=== PATIENT | male | born 1950 | race Caucasian/White ===

== ENCOUNTER 2022-06-16 13:28 | Emergency (ER) | payer OTHER ==
[2022-06-16 13:58] LABS: HEMOGLOBIN 15.3 gm/dl (14.0-17.5); RED BLOOD COUNT 5.48 M/UL (4.20-5.50); WHITE BLOOD COUNT 15.4 K/UL (4.5-11.0)
[2022-06-16] MEDS ORDERED: CEFDINIR300 MG PO (14:54)
[2022-06-16] MEDS ORDERED: OMNICEF 300 MG300 MG PO (18:25)
== END 2022-06-16 20:10 | disposition home or self-care (01) ==
LOC: ER1 13:28
PROVIDERS: Student in an Organized Health Care Education/Training Program
DX: J18.9 Pneumonia, unspecified organism (principal); E11.9 Type 2 diabetes mellitus without complications; I10 Essential (primary) hypertension; Z20.822 Contact with and (suspected) exposure to COVID-19
CPT/HCPCS: 0240U; 71045; 80048; 80053; 82550; 82553; 83605; 84484; 85025; 87040; 93005; 96374; 99285; J0696

== ENCOUNTER 2022-06-20 09:56 | Inpatient (IN) | payer OTHER ==
[~2022-06-20] VITALS: Ht 175.3 cm; Wt 87.1 kg
[~2022-06-20 09:56] MED LIST: CEFDINIR300 MG PO; OMNICEF 300 MG300 MG PO
[2022-06-20 11:00] LABS: RED BLOOD COUNT 5.15 M/UL (4.20-5.50); WHITE BLOOD COUNT 15.4 K/UL (4.5-11.0)
[2022-06-20] MEDS ORDERED: FAMOTIDINE20 MG PO (14:53)
[2022-06-20] MEDS ORDERED: PROVENTIL HFA6.7 GM INH (14:54)
[2022-06-20] MEDS ORDERED: BENAZEPRIL-HCT1 EAC1 PO (14:55)
[2022-06-20] MEDS ORDERED: JANUVIA100 MG PO (14:55)
[2022-06-20] MEDS ORDERED: GLIMEPIRIDE4 MG PO (14:56)
[2022-06-20] MEDS ORDERED: METFORMIN HCL1000 MG PO (14:57)
[2022-06-21 06:24] LABS: RED BLOOD COUNT 4.79 M/UL (4.20-5.50); WHITE BLOOD COUNT 12.8 K/UL (4.5-11.0)
[2022-06-21 14:51] LABS: BODY FLUID SOURCE PLEURAL; MONONUCLEAR CELLS 93 (75-100); RBC (AUTOMATED) 700 (0-100000); WBC (AUTOMATED) 2114 (0-500)
[2022-06-21 14:52] LABS: POLYMORPHONUCLEAR % 7 (0-25)
--- NOTE | 2022-06-21 15:07 | NUR ---
1250 - DR. ARANGO IN TO PERFORM THORACENTESIS ON PATIENT. PROCEDURE WAS PERFORMED AND TOLERATED WELL BY THE PATIENT. APPROXIMATELY 650mls REMOVED FROM PATIENTS RIGHT LUNG. 3 SMALL VIALS AND 1 SPECIMEN CUP CONTAINING A SAMPLE OF THE FLUID REMOVED WAS SENT TO LAB PER PROVIDER ORDERS. PATIENT VITALS WNL. NO ACUTE DISTRESS NOTED. WILL CONTINUE TO MONITOR.
[2022-06-21 15:19] LABS: LDH, BODY FLUID 85 U/L; TOTAL PROTEIN, BODY FLUID 3.8 gm/dL
[2022-06-21 15:20] LABS: AMYLASE, BODY FLUID 17 U/L
[2022-06-22 05:25] LABS: RED BLOOD COUNT 5.03 M/UL (4.20-5.50); WHITE BLOOD COUNT 14.6 K/UL (4.5-11.0)
[2022-06-23 07:47] LABS: RED BLOOD COUNT 4.8 M/UL (4.20-5.50); WHITE BLOOD COUNT 12.1 K/UL (4.5-11.0)
[2022-06-23 12:36] LABS: BUN/CREATININE RATIO 18 (0-10)
[2022-06-23 16:12] LABS: ORGANISM ID Not indicated. (.); SPECIMEN SOURCE Urine (.); STREPTOCOCCUS PNEUMONIAE AG Negative (Negative)
[2022-06-24 04:48] LABS: BUN/CREATININE RATIO 16 (0-10)
[2022-06-24 09:33] LABS: RED BLOOD COUNT 4.83 M/UL (4.20-5.50); WHITE BLOOD COUNT 13.3 K/UL (4.5-11.0)
[2022-06-24] MEDS ORDERED: LEVOFLOXACIN750 MG PO (16:09)
[2022-06-24] MEDS ORDERED: AMOX TR-K CLV1 EAC4 PO (16:09)
[2022-06-24] MEDS ORDERED: ASPIRIN EC81 MG PO (16:35)
[2022-06-24] MEDS ORDERED: FLONASE 0.05% N16 GM (16:35)
[2022-06-24] MEDS ORDERED: PULMICORT0.5 MG/2 M INH (16:38)
[2022-06-24] MEDS ORDERED: IPRAT-ALBUT 0.5-3 ML INH (16:38)
[2022-06-24] MEDS ORDERED: LOPRESSOR 25 MG25 MG PO (16:46)
[2022-06-24] MEDS ORDERED: LASIX20 MG PO (16:46)
[2022-06-24] MEDS ORDERED: PHENERGAN 25 MG25 M1 PO (17:21)
== END 2022-06-24 17:50 | disposition home or self-care (01) | DRG 193 ==
LOC: ER1 09:56 → CDU 14:18 → MED SURG 4 14:18
PROVIDERS: Internal Medicine; Physician Assistant; ADMIT Internal Medicine
PROC: 0W993ZZ Drainage of Right Pleural Cavity, Percutaneous Approach (ICD-10-PCS; principal; 2022-06-21)
PROC: B24BZZZ Ultrasonography of Heart with Aorta (ICD-10-PCS; 2022-06-22)
DX: J18.9 Pneumonia, unspecified organism (principal); J96.01 Acute respiratory failure with hypoxia; Z20.822 Contact with and (suspected) exposure to COVID-19; C96.9 Malignant neoplasm of lymphoid, hematopoietic and related tissue, unspecified; J90 Pleural effusion, not elsewhere classified; E87.1 Hypo-osmolality and hyponatremia; R59.0 Localized enlarged lymph nodes; K80.20 Calculus of gallbladder without cholecystitis without obstruction; E11.22 Type 2 diabetes mellitus with diabetic chronic kidney disease; E66.9 Obesity, unspecified; I12.9 Hypertensive chronic kidney disease with stage 1 through stage 4 chronic kidney disease, or unspecified chronic kidney disease; N18.30 Chronic kidney disease, stage 3 unspecified; J60 Coalworker's pneumoconiosis; J44.9 Chronic obstructive pulmonary disease, unspecified; K21.9 Gastro-esophageal reflux disease without esophagitis; Z79.01 Long term (current) use of anticoagulants; Z79.82 Long term (current) use of aspirin; Z87.11 Personal history of peptic ulcer disease; Z87.891 Personal history of nicotine dependence; Z88.8 Allergy status to other drugs, medicaments and biological substances; Z82.49 Family history of ischemic heart disease and other diseases of the circulatory system; Z83.3 Family history of diabetes mellitus; Z68.28 Body mass index [BMI] 28.0-28.9, adult
CPT/HCPCS: ECHO; 36415; 36600; 71045; 71046; 71275; 80048; 80053; 80202; 81001; 82150; 82550; 82553; 82803; 82945; 82962; 83605; 83615; 83735; 83986; 84157; 84484; 85025; 85027; 85379; 87040; 87070; 87081; 87205; 87278; 87899; 89051; 93005; 93306; 93970; 94640; 94664; 94760; 96374; 96375; 99285; J0692; J1650; J1940; J2185; J3370; J7070; Q9967; U0002

== ENCOUNTER → 2022-07-05 | Outpatient (CLI) | payer OTHER ==
[~2022-07-05] MED LIST changes: +AMOX TR-K CLV1 EAC3 PO; +AMOX TR-K CLV1 EAC4 PO; +ASPIRIN EC81 MG PO; +BENAZEPRIL-HCT1 EAC1 PO; +FAMOTIDINE20 MG PO; +FLONASE 0.05% N16 GM; +GLIMEPIRIDE4 MG PO; +IPRAT-ALBUT 0.5-3 ML INH; +JANUVIA100 MG PO; +LASIX20 MG PO; +LEVOFLOXACIN750 MG PO; +LOPRESSOR 25 MG25 MG PO; +METFORMIN HCL1000 MG PO; +MYCOSTATIN100000 UTS PO; +PHENERGAN 25 MG25 M1 PO; +PROVENTIL HFA6.7 GM INH; +PULMICORT0.5 MG/2 M INH
== END ==
LOC: EXRD 11:21
DX: J90 Pleural effusion, not elsewhere classified (principal)
CPT/HCPCS: 71046

== ENCOUNTER 2022-07-07 12:05 | Inpatient (IN) | payer OTHER ==
[~2022-07-07] VITALS: Ht 172.7 cm; Wt 78.3 kg
[~2022-07-07 12:05] MED LIST changes: -MYCOSTATIN100000 UTS PO
[2022-07-07 12:52] LABS: HEMOGLOBIN 17.3 gm/dl (14.0-17.5); RED BLOOD COUNT 6.25 M/UL (4.20-5.50); WHITE BLOOD COUNT 29.7 K/UL (4.5-11.0)
[2022-07-07] MEDS ORDERED: MYCOSTATIN100000 UTS PO (14:46)
[2022-07-08 05:20] LABS: WHITE BLOOD COUNT 24.2 K/UL (4.5-11.0)
[2022-07-08 05:22] LABS: HEMOGLOBIN 13.7 gm/dl (14.0-17.5); RED BLOOD COUNT 5.12 M/UL (4.20-5.50)
[2022-07-09 05:09] LABS: BUN/CREATININE RATIO 28 (0-10)
[2022-07-09 05:14] LABS: RED BLOOD COUNT 5.52 M/UL (4.20-5.50); WHITE BLOOD COUNT 22.6 K/UL (4.5-11.0)
[2022-07-09 10:04] LABS: BORDETELLA PARAPERTUSSIS Not Detected (Not Detectd); BORDETELLA PERTUSSIS Not Detected (Not Detectd); CHLAMYDIA PNEUMONIAE Not Detected (Not Detectd); CORONAVIRUS HKU1 Not Detected (Not Detectd); CORONAVIRUS NL63 Not Detected (Not Detectd); CORONAVIRUS OC43 Not Detected (Not Detectd); CORONOAVIRUS 229E Not Detected (Not Detectd); HUMAN METAPNEUMOVIRUS Not Detected (Not Detectd); HUMAN RHINOVIRUS/ENTEROVIRUS Not Detected (Not Detectd); INFLUENZA A Not Detected (Not Detectd); INFLUENZA B Not Detected (Not Detectd); MYCOPLASMA PNEUMONIAE Not Detected (Not Detectd); PARAINFLUENZA VIRUS 1 Not Detected (Not Detectd); PARAINFLUENZA VIRUS 2 Not Detected (Not Detectd); PARAINFLUENZA VIRUS 3 Not Detected (Not Detectd); PARAINFLUENZA VIRUS 4 Not Detected (Not Detectd); RESPIRATORY SYNCYTIAL VIRUS Not Detected (Not Detectd)
[2022-07-09 11:02] LABS: SARS-CoV-2 NOT DETECTED (Not Detectd)
[2022-07-10 04:49] LABS: HEMOGLOBIN 14.7 gm/dl (14.0-17.5); RED BLOOD COUNT 5.41 M/UL (4.20-5.50)
[2022-07-10 04:50] LABS: WHITE BLOOD COUNT 16.6 K/UL (4.5-11.0)
[2022-07-10 06:42] LABS: BUN/CREATININE RATIO 31 (0-10)
[2022-07-10 10:09] LABS: BUN/CREATININE RATIO 30 (0-10)
[2022-07-11 04:37] LABS: HEMOGLOBIN 14.7 gm/dl (14.0-17.5); RED BLOOD COUNT 5.44 M/UL (4.20-5.50)
[2022-07-11 04:44] LABS: WHITE BLOOD COUNT 22.6 K/UL (4.5-11.0)
[2022-07-11 04:58] LABS: BUN/CREATININE RATIO 31 (0-10)
[2022-07-12 05:05] LABS: HEMOGLOBIN 15.8 gm/dl (14.0-17.5); RED BLOOD COUNT 5.82 M/UL (4.20-5.50)
[2022-07-12 05:12] LABS: WHITE BLOOD COUNT 37.3 K/UL (4.5-11.0)
[2022-07-12 05:30] LABS: BUN/CREATININE RATIO 32 (0-10)
[2022-07-13 08:37] LABS: HEMOGLOBIN 14.1 gm/dl (14.0-17.5); RED BLOOD COUNT 5.39 M/UL (4.20-5.50); WHITE BLOOD COUNT 26.2 K/UL (4.5-11.0)
[2022-07-13 09:13] LABS: BUN/CREATININE RATIO 32 (0-10)
[2022-07-13] MEDS ORDERED: ZYVOX600 MG PO (14:32)
[2022-07-13] MEDS ORDERED: MUCOMYST 20% 4 M4 ML INH (14:32)
--- NOTE | 2022-07-13 15:02 | NUR ---
07/13/22 1501 PATIENT O2 SATURATION 87% ON ROOM AIR.
--- NOTE | 2022-07-13 17:31 | NUR ---
07/13/22 0044 REPORT CALLED TO [facility]. SPOKE TO CARLOS A ABOUT WEEKLY PICC LINE DRESSING CHANGE AND PLUERX DRAINAGE QOD
== END 2022-07-13 17:45 | disposition home or self-care (01) | DRG 871 ==
LOC: ER1 12:05 → CDU 13:49 → CCU 13:49
PROVIDERS: Family Medicine; Internal Medicine; Internal Medicine Pulmonary Disease; Physician Assistant; ADMIT Internal Medicine
PROC: 3E03329 Introduction of Other Anti-infective into Peripheral Vein, Percutaneous Approach (ICD-10-PCS; principal; 2022-07-07)
PROC: 0W993ZZ Drainage of Right Pleural Cavity, Percutaneous Approach (ICD-10-PCS; 2022-07-07)
PROC: BB4BZZZ Ultrasonography of Pleura (ICD-10-PCS; 2022-07-07)
PROC: 02HV33Z Insertion of Infusion Device into Superior Vena Cava, Percutaneous Approach (ICD-10-PCS; 2022-07-12)
PROC: B548ZZA Ultrasonography of Superior Vena Cava, Guidance (ICD-10-PCS; 2022-07-12)
PROC: 0W9930Z Drainage of Right Pleural Cavity with Drainage Device, Percutaneous Approach (ICD-10-PCS; 2022-07-12)
PROC: BB4BZZZ Ultrasonography of Pleura (ICD-10-PCS; 2022-07-12)
DX: A41.9 Sepsis, unspecified organism (principal); J18.9 Pneumonia, unspecified organism; J96.01 Acute respiratory failure with hypoxia; J96.21 Acute and chronic respiratory failure with hypoxia; C34.90 Malignant neoplasm of unspecified part of unspecified bronchus or lung; Z16.21 Resistance to vancomycin; J91.0 Malignant pleural effusion; N17.9 Acute kidney failure, unspecified; J44.1 Chronic obstructive pulmonary disease with (acute) exacerbation; J44.0 Chronic obstructive pulmonary disease with (acute) lower respiratory infection; R65.20 Severe sepsis without septic shock; K42.9 Umbilical hernia without obstruction or gangrene; E11.65 Type 2 diabetes mellitus with hyperglycemia; E87.5 Hyperkalemia; I48.0 Paroxysmal atrial fibrillation; F17.210 Nicotine dependence, cigarettes, uncomplicated; I10 Essential (primary) hypertension; K21.9 Gastro-esophageal reflux disease without esophagitis; Z79.01 Long term (current) use of anticoagulants; Z79.82 Long term (current) use of aspirin; Z85.828 Personal history of other malignant neoplasm of skin; Z88.8 Allergy status to other drugs, medicaments and biological substances; Z82.49 Family history of ischemic heart disease and other diseases of the circulatory system; Z83.3 Family history of diabetes mellitus; Z87.11 Personal history of peptic ulcer disease
CPT/HCPCS: 36415; 36600; 71045; 80048; 80053; 80162; 80202; 81001; 82550; 82553; 82803; 82962; 83036; 83605; 83735; 84100; 84439; 84443; 84484; 85007; 85025; 85027; 86140; 87040; 87070; 87077; 87081; 87186; 87205; 87633; 93005; 94640; 94660; 94664; 94760; 96374; 96375; 99285; C1729; C1751; J1160; J1650; J2185; J2704; J2920; J3370; J7050; J7070; P9047

== ENCOUNTER 2022-07-14 11:01 | Inpatient (IN) | payer OTHER ==
[~2022-07-14] VITALS: Ht 172.7 cm; Wt 78.9 kg
[~2022-07-14 11:01] MED LIST changes: +MUCOMYST 20% 4 M4 ML INH; +MYCOSTATIN100000 UTS PO; +ZYVOX600 MG PO
[2022-07-14 12:35] LABS: HEMOGLOBIN 15.1 gm/dl (14.0-17.5); RED BLOOD COUNT 5.61 M/UL (4.20-5.50)
[2022-07-14 13:18] LABS: WHITE BLOOD COUNT 33.7 K/UL (4.5-11.0)
[2022-07-15 04:22] LABS: HEMOGLOBIN 13.8 gm/dl (14.0-17.5); RED BLOOD COUNT 5.11 M/UL (4.20-5.50)
[2022-07-15 04:27] LABS: WHITE BLOOD COUNT 30.8 K/UL (4.5-11.0)
[2022-07-16 08:16] LABS: HEMOGLOBIN 14.5 gm/dl (14.0-17.5); RED BLOOD COUNT 5.36 M/UL (4.20-5.50)
[2022-07-16 09:39] LABS: BUN/CREATININE RATIO 37 (0-10)
[2022-07-16 12:23] LABS: BUN/CREATININE RATIO 35 (0-10)
[2022-07-16 15:35] LABS: BUN/CREATININE RATIO 38 (0-10)
[2022-07-17 06:00] LABS: HEMOGLOBIN 14.3 gm/dl (14.0-17.5); RED BLOOD COUNT 5.16 M/UL (4.20-5.50)
[2022-07-17 07:19] LABS: BUN/CREATININE RATIO 39 (0-10)
[2022-07-18 06:30] LABS: HEMOGLOBIN 14.7 gm/dl (14.0-17.5); RED BLOOD COUNT 5.36 M/UL (4.20-5.50)
[2022-07-19 17:29] LABS: WHITE BLOOD COUNT 30.4 K/UL (4.5-11.0)
== END 2022-07-18 18:42 | disposition short-term general hospital (02) | DRG 180 ==
LOC: ER1 11:01 → PROG CARE 17:08 → CDU 17:08 → PROG CARE 07-17 14:21
PROVIDERS: Physician Assistant; ADMIT Internal Medicine
DX: C34.90 Malignant neoplasm of unspecified part of unspecified bronchus or lung (principal); J15.8 Pneumonia due to other specified bacteria; J96.21 Acute and chronic respiratory failure with hypoxia; J91.0 Malignant pleural effusion; N17.9 Acute kidney failure, unspecified; I82.621 Acute embolism and thrombosis of deep veins of right upper extremity; Z16.21 Resistance to vancomycin; I48.0 Paroxysmal atrial fibrillation; I27.20 Pulmonary hypertension, unspecified; I10 Essential (primary) hypertension; E11.9 Type 2 diabetes mellitus without complications; E87.5 Hyperkalemia; Z87.891 Personal history of nicotine dependence; Z82.49 Family history of ischemic heart disease and other diseases of the circulatory system; Z88.8 Allergy status to other drugs, medicaments and biological substances; Z79.899 Other long term (current) drug therapy
CPT/HCPCS: 71045; 80048; 80053; 82550; 82553; 82962; 83735; 83880; 84484; 85007; 85027; 85610; 85730; 86140; 93005; 93971; 94640; 94660; 94664; 94760; 96374; 96375; 99285; J1644; J2185; J2270; P9045; Q9967; U0002